=== PATIENT | male | born 1925 | race Caucasian/White ===

== ENCOUNTER 2016-09-27 06:54 | Emergency (ER) | payer OTHER ==
[2016-09-27 07:06] VITALS: BP 150/86; PULSE 74; RESP 14; TEMP 97.5; O2SAT 94
--- NOTE | 2016-09-27 07:42 | EDPHY ---
H & P Stated Complaint: L foot pain onset at bedtime, worsening through night Time Seen by Provider: 09/27/16 07:31 HPI/ROS: CHIEF COMPLAINT: Left ankle and foot pain HISTORY OF PRESENT ILLNESS: The patient is an 89 y/o male, with a history of arthritis, arriving with his complaining of left foot pain for the last few days that worsened late last night. He says he's had some mild pain in his foot "for some time," but began to notice acute pain this last week. His pain was manageable until it woke him from sleep last night. He has been unable to bear weight without pain extending from the dorsal surface of foot to his ankle. His pain has improved with movement and he currently rates it as a 2/10 in severity. He has not tried to treat his pain with anything. He uses aspirin, but no anticoagulants. - Personal History Current Tetanus/Diphtheria Vaccine: Yes - Medical/Surgical History PMH: PMH includes: 1. Arthritis 2. Trimalleolar fracture of right ankle 3. Hypertension Hx Asthma: No Hx Chronic Respiratory Disease: No Hx Diabetes: No Hx Cardiac Disease: No Hx Renal Disease: No Hx Cirrhosis: No Hx Alcoholism: No Hx HIV/AIDS: No Hx Splenectomy or Spleen Trauma: No Other PMH: PMHx: HTN, GERD. PSHx: colectomy, ileostomy, R ankle for trimalleolar fx, bilat knee replacements, R shoulder - Social History Smoking Status: Never smoked Additional Social History: at bedside. Nonsmoker. - Physical Exam Exam: General Appearance: Alert, pleasant Vascular: dorsalis pedis pulse 2+, normal capillary refill Neurological: A&O, nonfocal, gait deferred Skin: Warm and dry Extremities: Faint and patchy erythema over dorsum of left ankle without tenderness or warmth; mild swelling and tenderness over the ankle area, passive ROM without pain of left ankle Constitutional: Initial Vital Signs Temperature (C) 36.4 C 09/27/16 06:58 Heart Rate 74 09/27/16 06:58 Respiratory Rate 14 09/27/16 06:58 Blood Pressure 150/86 H 09/27/16 06:58 O2 Sat (%) 94 09/27/16 06:58 O2 Delivery Mode Room Air Allergies/Adverse Reactions: NSAIDS (Non-Steroidal Anti-Inflamma [Nsaids] Allergy (Severe, Verified 06/04/10 06:45) GI BLEED Home Medications: Medication Instructions Recorded COZAAR 11/28/08 Imiprozole 11/28/08 Hydrochlorothiazide 12/05/09 Acetaminophen [Tylenol Extra 500 mg PO BID 12/07/10 Strength] Alendronate Sodium [Fosamax 10 mg] 0 mg PO 12/07/10 Amlodipine 0 DAILY 12/07/10 Aspirin [Aspirin 81mg] 81 mg PO DAILY 12/07/10 Calcium Carbonate [Calcium] 0 mg PO DAILY 12/07/10 Fish Oil 1,000 mg Softgel 12/07/10 Hctz 12.5 mg 12/07/10 Medical Decision Making - Diagnostics Imaging Results: Imaging Impressions Ankle X-Ray 09/27/16 07:41 Impression: Atherosclerotic disease. 2. Left Foot , 3 views History: Streams spontaneous pain upon waking. Findings: There is lateral either subluxation or dislocation of the fifth PIP joint, of unknown chronicity. There is irregularity of the lateral half of the interphalangeal joint of the great toe, likely related to remote trauma. There is faint calcification medial lateral to the first metatarsal head that could potentially represent evidence of soft tissue uric acid deposition. There is no erosive change. 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 There is plantar atherosclerotic vascular calcification in the mid foot. There is a healed or healing proximal second metatarsal shaft fracture. Impression: Multiple findings described above of uncertain chronicity. Is there gout? Any pain involving the fifth PIP joint? Results discussed with Dr. Santana at 8:20 AM. Foot X-Ray 09/27/16 07:41 Impression: Atherosclerotic disease. 2. Left Foot , 3 views History: Streams spontaneous pain upon waking. Findings: There is lateral either subluxation or dislocation of the fifth PIP joint, of unknown chronicity. There is irregularity of the lateral half of the interphalangeal joint of the great toe, likely related to remote trauma. There is faint calcification medial lateral to the first metatarsal head that could potentially represent evidence of soft tissue uric acid deposition. There is no erosive change. 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 There is plantar atherosclerotic vascular calcification in the mid foot. There is a healed or healing proximal second metatarsal shaft fracture. Impression: Multiple findings described above of uncertain chronicity. Is there gout? Any pain involving the fifth PIP joint? Results discussed with Dr. Santana at 8:20 AM. Imaging: I viewed and interpreted images myself ED Course/Re-evaluation: This is a well-appearing 89 y/o male who presents with a few-day history of left ankle and foot pain that woke him from sleep last night. The pain seems localized to the ankle area and does not involve the midfoot/toes. The pain has since improved and is now mild in severity. On exam, he is neurovascularly intact. Notably, he has normal passive ankle ROM without pain, which lessens my suspicion for a septic joint or gout. Foot and ankle x-rays show chronic arthritic process, but nothing acute. I discussed imaging results with the patient and recommended treatment with Tylenol and PCP follow up for unimproved symptoms over the next week. Return precautions given. He is comfortable with this plan. Departure - Departure Disposition: Home, Routine, Self-Care Clinical Impression: Arthritis, Left foot pain Left ankle pain Qualifiers: Chronicity: acute Qualified Code(s): M25.572 - Pain in left ankle and joints of left foot Condition: Good Instructions: Arthralgia (ED), Arthritis (ED) Additional Instructions: 1. Take 500mg Tylenol every 4-6 hours for the next few days as needed for pain. 2. Follow up with your primary care provider for unimproved symptoms over the next week. 3. Return to the ED for increase in redness or swelling, severe pain, inability to walk, fever, or other worsening of condition. Referrals: Aziza Stone MD [Primary Care Provider] - As per Instructions Report Scribed for: Bell Santana Report Scribed by: Lisa Leyva Date of Report: 09/27/16 Time of Report: 07:42 Physician Review and Approval Statement: 09/27/16 07:42 Portions of this note were transcribed by a biomedical manager. I personally performed a history, physical exam, medical decision making, and confirmed accuracy of information the transcribed note.
== END 2016-09-27 08:15 | disposition home or self-care (01) ==
DX: M19.072 Primary osteoarthritis, left ankle and foot (principal); I10 Essential (primary) hypertension; Z79.82 Long term (current) use of aspirin